=== PATIENT | male | born 1960 | race Two or more races ===

== ENCOUNTER → 2023-03-02 | Outpatient (CLI) | payer MEDICAID ==
[~2023-03-02] MED LIST: ALBUTEROL SULF 2.5 MG/0.5ML(0.5%) NEB SOLN ONE
== END | disposition home or self-care (01) ==
LOC: RT 09:05
PROVIDERS: ATTEND Internal Medicine Pulmonary Disease
DX: Z01.810 Encounter for preprocedural cardiovascular examination (principal); R06.09 Other forms of dyspnea
CPT/HCPCS: 94060; 94727; 94729